=== PATIENT | female | born 1975 | race Caucasian/White ===

== ENCOUNTER 2020-03-16 10:57 | Emergency (ER) | payer OTHER ==
[~2020-03-16] VITALS: Ht 180.3 cm; Wt 91.9 kg
[2020-03-16] MEDS ORDERED: IV NORMAL SALINE 1,000ML 1,000 ML IV ONE (11:45)
[2020-03-16 12:00] LABS: BACTERIA,URINE FEW /HPF (0-FEW); BILIRUBIN,URINE NEG (NEG); CLARITY,URINE CLEAR; COLOR,URINE YELLOW; GLUCOSE,URINE NEG (NEG); NITRITE,URINE NEG (NEG); SQUAMOUS EPITHELIAL CELL,UR MOD /LPF; UROBILINOGEN,URINE 0.2 mg/dL (0.2 mg/dL)
[2020-03-16 12:21] LABS: BASO % 1 % (0-3); EOS % 0 % (0-3); HEMATOCRIT 37.9 % (36.0-47.0); LYMPH % 34 % (24-48); MEAN CORPUSCULAR HEMOGLOBIN 33 pg (25-35); MEAN CORPUSCULAR HGB CONC 34 g/dL (31-37); MEAN CORPUSCULAR VOLUME 95 fL (79-100); MONO # 0.4 x10^3/uL (0.0-1.1); MONO % 7 % (0-9); NEUT # 3.6 x10^3uL (1.8-7.7); NEUT % 59 % (31-73); PLATELET COUNT 171 x10^3/uL (140-400); RED BLOOD COUNT 3.98 x10^6/uL (3.50-5.40); RED CELL DISTRIBUTION WIDTH 13.2 % (11.5-14.5); WHITE BLOOD COUNT 6.1 x10^3/uL (4.0-11.0)
--- NOTE | 2020-03-16 12:31 | RAD ---
INDICATION: Reason: right flank pain eval for ureteral calculi, low pelvic pain / Spl. Instructions: / History: COMPARISON: None. TECHNIQUE: Axial CT images obtained through the abdomen and pelvis without contrast. Limited assessment of solid organ structures and vasculature secondary to lack of contrast.. One or more of the following individualized dose reduction techniques were utilized for this examination: 1. Automated exposure control; 2. Adjustment of the mA and/or kV according to patient size; 3. Use of iterative reconstruction technique. FINDINGS: Abdominal aorta is not aneurysmal. Within the right gluteal musculature anteriorly laterally there is a fat-containing masslike structure seen measuring approximately 32 x 25 mm. Within the left adnexa there is a mixed density masslike structure identified with some internal complexity. This measures up to about 36 mm. Subcentimeter low-density lesion within the liver, too small to characterize but a common finding. Gallbladder is partially contracted. Mild haziness of the fat in the upper abdomen near pancreas. There may be a duodenal diverticulum. Spleen unremarkable. Urinary bladder is partially distended. No left-sided hydronephrosis. Right adrenal nodule which is low density which can be seen with adenoma. Another possible cause would include cyst. Mild dilatation of right extrarenal pelvis. Multiple calcifications in the bilateral hemipelvis including a 2 mm calcification near expected location of the ureterovesicular junction. Small free fluid within the pelvis. No periappendiceal inflammatory changes. There are some scattered mildly prominent loops of small bowel without a high-grade transition point. Degenerative changes of the spine. There is some sclerosis at the left greater than right sacroiliac joint. IMPRESSION: * No evidence of appendicitis. * Mild prominence of the right extrarenal pelvis. There are numerous calcifications within the bilateral hemipelvis with the majority of these likely secondary to phleboliths. There is a small calcification near the expected location of the right distal ureter therefore a small right distal ureter stone is possible. * Within the left adnexa there is a partially fat-containing mass identified. Most likely cause would be ovarian teratoma. * Fat-containing structure in the right gluteal musculature which could be secondary to lipoma. * Mild haziness the fat of the upper abdomen adjacent to the pancreas. Nonspecific in nature but would correlate with symptoms and lab markers to ensure there is not a pathologic cause such as pancreatitis. Electronically signed by: Orestes Simmons MD (03/16/2020 12:28 PM) [id number]
[2020-03-16 12:34] LABS: CALCIUM 8.4 mg/dL (8.5-10.1); CREATININE 1.1 mg/dL (0.6-1.0); GFR 54.5; POTASSIUM 3.8 mmol/L (3.5-5.1)
[2020-03-16 12:39] LABS: ALBUMIN 3.5 g/dL (3.4-5.0); ALBUMIN/GLOBULIN RATIO 1.1 (1.0-1.7); MAGNESIUM 1.9 mg/dL (1.8-2.4); TOTAL BILIRUBIN 0.3 mg/dL (0.2-1.0); TOTAL PROTEIN 6.7 g/dL (6.4-8.2)
--- NOTE | 2020-03-16 14:06 | RAD ---
Examination: US PELVIS W/TV History: Reason: pelvic pain, possible teratoma on CT / Spl. Instructions: / History: Comparison/Correlation: 03/16/2020 CT abdomen and pelvis without contrast Findings: Transabdominal and transvaginal pelvic ultrasound was performed. Uterus measures 10.7 cm is limited with a 24 cm. Endometrial thickness is 0.5 cm. Myometrium is unremarkable. Right ovary measures 2.1 cm x 2.7 cm x 2 cm. Left ovary measures 2.7 cm x 2.7 cm x 1.7 cm. Hyperechoic mass involving the left ovary is present without vascularity noted measuring the 3 cm by 2.8 cm x 2.7 cm. Normal ovarian flow bilaterally seen without evidence of torsion. Small ovarian follicles which are physiologic in appearance noted. Vascularity involving the left pelvis is notable on color Doppler imaging. Impression: Left ovarian teratoma. Left pelvic vascularity is notable raising question of pelvic congestion syndrome. Electronically signed by: Lucio Marcial MD (03/16/2020 2:04 PM) [facility]
--- NOTE | 2020-03-16 14:16 | PHYS DOC ---
Past History Past Medical History: Anxiety, DVT, Other Past Surgical History: Tubal ligation Smoking: Cigarettes Alcohol Use: None Drug Use: None General Adult EDM: Chief Complaint: GROIN PAIN HPI: HPI: 44 year old female presents with 2 day history of bilateral lower quadrant abdominal/pelvic pain. Denies vaginal bleeding or discharge. Denies . Hx of tubal ligation. Denies N/V/D. Reports history of recently diagnosed rig ht arm DVT for which patient was started on Eliquis. Reports concern for possible "blood clot" due to recent long distance travel in car approximately 8- 10 hours. Denies trauma. Review of Systems: Review of Systems: Constitutional: Denies fever or chills Eyes: Denies change in visual acuity, redness, or eye pain HENT: Denies nasal congestion or sore throat Respiratory: Denies cough or shortness of breath Cardiovascular: Denies chest pain or palpitations GI: Reports lower abdominal pain; denies nausea, vomiting, or diarrhea /BOOK MENDER: Denies dysuria or hematuria; denies or vaginal discharge Musculoskeletal: Denies back pain or joint pain Integument: Denies rash or skin lesions Neurologic: Denies headache, focal weakness or sensory changes Complete systems were reviewed and found to be within normal limits, except as documented in this note. Current Medications: Current Meds: Current Medications Medications (Trade) Dose Ordered Sig/Nichole Start Time Stop Time Status Last Admin Dose Admin Sodium Chloride 1,000 ml @ 1,000 mls/hr 1X ONCE 03/16/20 11:45 03/16/20 12:44 DC 03/16/20 12:15 1,000 MLS/HR Allergies: Allergies: Allergies Coded Allergies Type Severity Reaction Last Updated Verified morphine Allergy Unknown 03/16/20 Yes prochlorperazine Allergy Unknown 03/16/20 Yes Physical Exam: PE: Constitutional: Well developed, well nourished, no acute distress, non-toxic appearance HENT: Normocephalic, atraumatic Eyes: Conjunctiva normal, no discharge Neck: Normal range of motion, supple Lungs & Thorax: Equal chest rise and fall, no respiratory distress Abdomen: Soft, lower quadrant tenderness Pelvic exam: Deferred Skin: Warm, dry, no erythema, no rash Back: No tenderness, no CVA tenderness Extremities: No calf tenderness bilaterally, ROM intact, no edema Neurologic: Alert and oriented X 3, no focal deficits noted Psychologic: Affect normal, judgement normal Current Patient Data: Labs: Laboratory Tests Test 03/16/20 11:15 03/16/20 12:06 Urine Collection Type Unknown Urine Color Yellow Urine Clarity Clear Urine pH 6.5 Urine Specific [place] 1.010 Urine Protein Neg (NEG-TRACE) Urine Glucose (UA) Neg mg/dL (NEG) Urine Ketones (Stick) Neg mg/dL (NEG) Urine Blood Small (NEG) Urine Nitrite Neg (NEG) Urine Bilirubin Neg (NEG) Urine Urobilinogen Dipstick 0.2 mg/dL (0.2 mg/dL) Urine Leukocyte Esterase Neg (NEG) Urine RBC 3-5 /HPF (0-2) Urine WBC 1-4 /HPF (0-4) Urine Squamous Epithelial Cells Mod /LPF Urine Bacteria Few /HPF (0-FEW) White Blood Count 6.1 x10^3/uL (4.0-11.0) Red Blood Count 3.98 x10^6/uL (3.50-5.40) Hemoglobin 13.0 g/dL (12.0-15.5) Hematocrit 37.9 % (36.0-47.0) Mean Corpuscular Volume 95 fL (79-100) Mean Corpuscular Hemoglobin 33 pg (25-35) Mean Corpuscular Hemoglobin Concent 34 g/dL (31-37) Red Cell Distribution Width 13.2 % (11.5-14.5) Platelet Count 171 x10^3/uL (140-400) Neutrophils (%) (Auto) 59 % (31-73) Lymphocytes (%) (Auto) 34 % (24-48) Monocytes (%) (Auto) 7 % (0-9) Eosinophils (%) (Auto) 0 % (0-3) Basophils (%) (Auto) 1 % (0-3) Neutrophils # (Auto) 3.6 x10^3uL (1.8-7.7) Lymphocytes # (Auto) 2.0 x10^3/uL (1.0-4.8) Monocytes # (Auto) 0.4 x10^3/uL (0.0-1.1) Eosinophils # (Auto) 0.0 x10^3/uL (0.0-0.7) Basophils # (Auto) 0.0 x10^3/uL (0.0-0.2) Prothrombin Time 11.1 SEC (9.4-11.4) Prothrombin Time INR 1.1 (0.9-1.1) Activated Partial Thromboplast Time 30 SEC (23-33) Sodium Level 141 mmol/L (136-145) Potassium Level 3.8 mmol/L (3.5-5.1) Chloride Level 105 mmol/L (98-107) Carbon Dioxide Level 28 mmol/L (21-32) Anion Gap 8 (6-14) Blood Urea Nitrogen 11 mg/dL (7-20) Creatinine 1.1 mg/dL (0.6-1.0) H Estimated GFR (Cockcroft-Gault) 54.5 BUN/Creatinine Ratio 10 (6-20) Glucose Level 103 mg/dL (70-99) H Calcium Level 8.4 mg/dL (8.5-10.1) L Magnesium Level 1.9 mg/dL (1.8-2.4) Total Bilirubin 0.3 mg/dL (0.2-1.0) Aspartate Amino Transferase (AST) 16 U/L (15-37) Alanine Aminotransferase (ALT) 16 U/L (14-59) Alkaline Phosphatase 47 U/L (46-116) Total Protein 6.7 g/dL (6.4-8.2) Albumin 3.5 g/dL (3.4-5.0) Albumin/Globulin Ratio 1.1 (1.0-1.7) Lipase 72 U/L (73-393) L Vital Signs: Vital Signs Date Time Temp Pulse Resp B/P (MAP) Pulse Ox O2 Delivery O2 Flow Rate FiO2 03/16/20 11:05 97.9 75 20 127/82 (97) 99 Room Air EKG: EKG: [] Radiology/Procedures: Radiology/Procedures: PROCEDURE: US PELVIS W/TV Examination: US PELVIS W/TV History: Reason: pelvic pain, possible teratoma on CT / Spl. Instructions: / History: Comparison/Correlation: 03/16/2020 CT abdomen and pelvis without contrast Findings: Transabdominal and transvaginal pelvic ultrasound was performed. Uterus measures 10.7 cm is limited with a 24 cm. Endometrial thickness is 0.5 cm. Myometrium is unremarkable. Right ovary measures 2.1 cm x 2.7 cm x 2 cm. Left ovary measures 2.7 cm x 2.7 cm x 1.7 cm. Hyperechoic mass involving the left ovary is present without vascularity noted measuring the 3 cm by 2.8 cm x 2.7 cm. Normal ovarian flow bilaterally seen without evidence of torsion. Small ovarian follicles which are physiologic in appearance noted. Vascularity involving the left pelvis is notable on color Doppler imaging. Impression: Left ovarian teratoma. Left pelvic vascularity is notable raising question of pelvic congestion syndrome. Electronically signed by: Lucio Marcial MD (03/16/2020 2:04 PM) [facility] PROCEDURE: CT ABDOMEN PELVIS WO CONTRAST INDICATION: Reason: right flank pain eval for ureteral calculi, low pelvic pain / Spl. Instructions: / History: COMPARISON: None. TECHNIQUE: Axial CT images obtained through the abdomen and pelvis without contrast. Limited assessment of solid organ structures and vasculature secondary to lack of contrast.. One or more of the following individualized dose reduction techniques were utilized for this examination: 1. Automated exposure control; 2. Adjustment of the mA and/or kV according to patient size; 3. Use of iterative reconstruction technique. FINDINGS: Abdominal aorta is not aneurysmal. Within the right gluteal musculature anteriorly laterally there is a fat-containing masslike structure seen measuring approximately 32 x 25 mm. Within the left adnexa there is a mixed density masslike structure identified with some internal complexity. This measures up to about 36 mm. Subcentimeter low-density lesion within the liver, too small to characterize but a common finding. Gallbladder is partially contracted. Mild haziness of the fat in the upper abdomen near pancreas. There may be a duodenal diverticulum. Spleen unremarkable. Urinary bladder is partially distended. No left-sided hydronephrosis. Right adrenal nodule which is low density which can be seen with adenoma. Another possible cause would include cyst. Mild dilatation of right extrarenal pelvis. Multiple calcifications in the bilateral hemipelvis including a 2 mm calcification near expected location of the ureterovesicular junction. Small free fluid within the pelvis. No periappendiceal inflammatory changes. There are some scattered mildly prominent loops of small bowel without a high-grade transition point. Degenerative changes of the spine. There is some sclerosis at the left greater than right sacroiliac joint. IMPRESSION: * No evidence of appendicitis. * Mild prominence of the right extrarenal pelvis. There are numerous calcifications within the bilateral hemipelvis with the majority of these likely secondary to phleboliths. There is a small calcification near the expected location of the right distal ureter therefore a small right distal ureter stone is possible. * Within the left adnexa there is a partially fat-containing mass identified. Most likely cause would be ovarian teratoma. * Fat-containing structure in the right gluteal musculature which could be secondary to lipoma. * Mild haziness the fat of the upper abdomen adjacent to the pancreas. Nonspecific in nature but would correlate with symptoms and lab markers to ensure there is not a pathologic cause such as pancreatitis. Electronically signed by: Orestes Simmons MD (03/16/2020 12:28 PM) [id number] Course & Med Decision Making: Course & Med Decision Making Pertinent Labs and Imaging studies reviewed. (See chart for details) Patient presents with lower abdominal/pelvis pain. Symptomatic treatment provided. Labs obtained and posted to chart. CT abd/pelvis with concern for possible ovarian teratoma with recommendation for further evaluation with US. Pelvic US confirmed findings consistent for teratoma and signs of pelvic congestion syndrome. No torsion noted. Patient stable for discharge home with outpatient follow-up with PCP/BOOK MENDER. BOOK MENDER referral provided. Discussed findings and plan with patient, who acknowledges understanding and agreement. Dragcesilia Disclaimer: Dragcesilia Disclaimer: This electronic medical record was generated, in whole or in part, using a voice recognition dictation system. Departure Departure: Impression: Primary Impression: Pelvic pain Additional Impressions: Teratoma of left ovary Pelvic congestion syndrome Disposition: 01 HOME/RESIDENCE PRIOR TO ADM Condition: STABLE Referrals: PCP,NO (PCP) Patient Instructions: Ovarian Cyst, [id number], Pelvic Pain, Female, [id number] Additional Instructions: Call Dr. Mahin Hoang (BOOK MENDER) [facility] DIRECTOR SPECIAL EDUCATION, [employer] Address: [address] [place] [id number] Scripts Hydrocodone Bit/Acetaminophen (NORCO 5-325 TABLET) 1 Each Tablet 0.5-1 TAB PO Q6HRS PRN for PAIN, #10 TAB Prov: EMIL DAMIAN DO 03/16/20 Justification of Admission: Justification of Admission: Justification of Admission Dx: N/A EMIL DAMIAN DO Mar 16, 2020 14:16
[2020-03-16] MEDS ORDERED: HYDR-3165 PO (14:29)
[2020-03-16 14:40] VITALS: BP 134/74
== END 2020-03-16 14:45 | disposition home or self-care (01) ==
LOC: ER 10:57
DX: N94.89 Other specified conditions associated with female genital organs and menstrual cycle (principal); R10.2 Pelvic and perineal pain; D27.1 Benign neoplasm of left ovary; R10.31 Right lower quadrant pain; R10.32 Left lower quadrant pain; F41.9 Anxiety disorder, unspecified; Z98.51 Tubal ligation status; Z88.6 Allergy status to analgesic agent; Z88.8 Allergy status to other drugs, medicaments and biological substances
CPT/HCPCS: 36415; 74176; 76830; 76856; 80053; 81001; 83690; 83735; 85025; 85610; 85730; 99285; J7030; 81025

== ENCOUNTER 2020-06-25 14:35 | Emergency (ER) | payer OTHER ==
[~2020-06-25] VITALS: Ht 180.3 cm; Wt 95.0 kg
[~2020-06-25 14:35] MED LIST: HYDR-3165 PO
--- NOTE | 2020-06-25 16:16 | RAD ---
Right upper Extremity Venous Doppler Ultrasound History: Reason: DVT, AXILLARY PAIN / Comparison: None Procedure: Color flow, duplex, spectral analysis and 2D images are obtained with and without compression in the area of the deep and superficial venous structures of the upper , specifically the axillary, brachials, radial and ulnar deep veins and the superficial basilic and cephalic veins. Color Doppler and venous waveform analysis was also applied to the left jugular and subclavian vein. Findings: There is normal duplex flow, color flow and compressibility of all visualized vein segments. No evidence of deep venous thrombus is present. Impression: Normal venous Doppler ultrasound with no evidence of DVT. Electronically signed by: Tylor Kolb III, MD (06/25/2020 4:13 PM) [facility]
--- NOTE | 2020-06-25 16:51 | PHYS DOC ---
Past History Past Medical History: Anxiety, DVT Past Surgical History: Smoking: Cigarettes Alcohol Use: None Drug Use: None Adult General Chief Complaint Chief Complaint: UPPER EXTREMITY PAIN HPI HPI Patient is a 45-year-old female patient presenting to the ED today for DVT rule out on the right upper extremity. Patient states around February 2020 she was diagnosed with DVT of the right upper extremity and has been following up with a food production associate, she states she is currently on Eliquis. She states today she had some numbness and tingling to the right upper extremity that got her concerned she could have another DVT. She was sent for venous Doppler of the right upper extremity to rule out DVT. Denies any chest pain or shortness of breath. Review of Systems Review of Systems Constitutional: Denies fever or chills [] Eyes: Denies change in visual acuity, redness, or eye pain [] HENT: Denies nasal congestion or sore throat [] Respiratory: Denies cough or shortness of breath [] Cardiovascular: No additional information not addressed in HPI [] GI: Denies abdominal pain, nausea, vomiting, bloody stools or diarrhea [] : Denies dysuria or hematuria [] Musculoskeletal: Denies back pain or joint pain [] Integument: Reports numbness and tingling to the right upper extremity Neurologic: Denies headache, focal weakness or sensory changes [] All other systems were reviewed and found to be within normal limits, except as documented in this note. Allergies Allergies Allergies Coded Allergies Type Severity Reaction Last Updated Verified morphine Allergy Unknown 03/16/20 Yes prochlorperazine Allergy Unknown 03/16/20 Yes Physical Exam Physical Exam Constitutional: Well developed, well nourished, no acute distress, non-toxic appearance. [] HENT: Normocephalic, atraumatic, bilateral external ears normal, oropharynx moist, no oral exudates, nose normal. [] Eyes: PERRLA, EOMI, conjunctiva normal, no discharge. [] Neck: Normal range of motion, no tenderness, supple, no stridor. [] Cardiovascular:Heart rate regular rhythm, no murmur [] Lungs & Thorax: Bilateral breath sounds clear to auscultation [] Abdomen: Bowel sounds normal, soft, no tenderness, no masses, no pulsatile masses. [] Skin: See extremity. Warm, dry, no erythema, no rash. [] Back: No tenderness, no CVA tenderness. [] Extremities: Right upper extremity with no obvious swelling, no tenderness, no cyanosis, no clubbing, ROM intact, +2 right radial pulse Neurologic: Alert and oriented X 3, normal motor function, normal sensory function, no focal deficits noted. [] Psychologic: Affect normal, judgement normal, mood normal. [] Current Patient Data Vital Signs Vital Signs Date Time Temp Pulse Resp B/P (MAP) Pulse Ox O2 Delivery O2 Flow Rate FiO2 06/25/20 14:59 97.5 70 18 128/79 (95) 99 Room Air EKG EKG [] Radiology/Procedures Radiology/Procedures []PROCEDURE: VENOUS UPPER EXTREMITY RIGHT Right upper Extremity Venous Doppler Ultrasound History: Reason: DVT, AXILLARY PAIN / Comparison: None Procedure: Color flow, duplex, spectral analysis and 2D images are obtained with and without compression in the area of the deep and superficial venous structures of the upper , specifically the axillary, brachials, radial and ulnar deep veins and the superficial basilic and cephalic veins. Color Doppler and venous waveform analysis was also applied to the left jugular and subclavian vein. Findings: There is normal duplex flow, color flow and compressibility of all visualized vein segments. No evidence of deep venous thrombus is present. Impression: Normal venous Doppler ultrasound with no evidence of DVT. Electronically signed by: Jessee Gutierrez III, MD (06/25/2020 4:13 PM) [facility] DICTATED AND SIGNED BY: JESSEE GUTIERREZ III, MD DATE: 06/25/20 1613 CC: TESS BEAN DO; REBECCA FAJARDO MD ~ Heart Score Risk Factors: Risk Factors: DM, Current or recent (<one month) smoker, HTN, HLP, family history of CAD, obesity. Risk Scores: Risk Factors: DM, Current or recent (<one month) smoker, HTN, HLP, family history of CAD, obesity. Course & Med Decision Making Course & Med Decision Making Pertinent Labs and Imaging studies reviewed. (See chart for details) This is a 45-year-old female patient presenting to the ED today with right upper extremity numbness and tingling and concern she could have another DVT to the right upper extremity. She had 1 in February 2020 and is currently on Eliquis. Venous Doppler of the right upper extremity is negative. Discharge to home. Encouraged to continue taking Eliquis and follow-up with the food production associate. William Disclaimer Dragon Disclaimer This electronic medical record was generated, in whole or in part, using a voice recognition dictation system. Departure Departure: Impression: Primary Impression: Arm paresthesia, right Disposition: 01 DC HOME SELF CARE/HOMELESS Condition: STABLE Referrals: REBECCA FAJARDO MD (PCP) follow up with your doctor next week Patient Instructions: Paresthesia, [id number] Additional Instructions: We did an ultrasound of your right upper extremity which was negative for blood clot. Continue following up with the food production associate and taking Eliquis. Come back to the ED at any point symptoms worsen. ESHA ONTIVEROS MERCHANDISING REPRESENTATIVE Jun 25, 2020 16:51
[2020-06-25 16:59] VITALS: BP 114/70
== END 2020-06-25 16:59 | disposition home or self-care (01) ==
LOC: ER 14:35
DX: R20.2 Paresthesia of skin (principal); I82.621 Acute embolism and thrombosis of deep veins of right upper extremity; F41.9 Anxiety disorder, unspecified; F17.210 Nicotine dependence, cigarettes, uncomplicated; Z88.5 Allergy status to narcotic agent; Z88.8 Allergy status to other drugs, medicaments and biological substances
CPT/HCPCS: 93971; 99284

== ENCOUNTER → 2020-09-18 | Outpatient (CLI) | payer OTHER ==
--- NOTE | 2020-09-18 15:48 | RAD ---
INDICATION: Reason: / Spl. Instructions: RT ARM SWELLING; UPPER RT RIB REMOVED 1 WK AGO DUE TO TOS / History: COMPARISON: None. TECHNIQUE: Grayscale, color and doppler ultrasound images were obtained of the right upper extremity venous vasculature. RIGHT: No thrombus identified in the internal jugular, subclavian, axillary, brachial, basilic, cephalic, ra dial or ulnar veins. IMPRESSION: 1. No thrombus identified in deep venous system of right upper extremity. Electronically signed by: Orestes Simmons MD (09/18/2020 3:46 PM) [id number]
--- NOTE | 2020-09-18 16:40 | RAD ---
INDICATION: Reason: POST OPERATIVE CHEST PAIN NEAR 1ST RIB WHICH WAS REMOVED / Spl. Instructions: / History: COMPARISON: None. FINDINGS: 2 view of chest obtained. Postoperative changes at the right upper chest with surgical clips seen in the region and partial res ection of rib. Cardiac silhouette is unremarkable. No focal airspace consolidation. IMPRESSION: * Postoperative changes to the right upper chest with clips in the region without focal consolidatio n Electronically signed by: Orestes Simmons MD (09/18/2020 4:38 PM) [id number]
== END ==
LOC: US 14:29
PROVIDERS: ATTEND Registered Nurse Medical-Surgical
DX: M79.621 Pain in right upper arm (principal); R07.9 Chest pain, unspecified
CPT/HCPCS: 71046; 93971